=== PATIENT | male | born 1955 ===

== ENCOUNTER 2024-11-04 14:53 | Outpatient (REF) | payer MEDICARE, SELFPAY ==
[2024-11-04 15:00] LABS: MANUAL DIFF FLAG NO
[2024-11-04 15:09] LABS: Basophils Percent Auto 0.3 % (0-2); Eosinophils Absolute Auto 0.2 X10*3/uL (0.0-0.4); Eosinophils Percent Auto 2.4 % (0-4); Hematocrit 35.3 % (42.0-52.0); Hemoglobin 11.4 g/dl (14.0-18.0); Imm Gran Abs Auto 0.04 X10*3/uL (0.00-0.03); Imm Gran Pct Auto 0.6 % (0.0-0.4); Lymphocytes Absolute Auto 1.1 X10*3/uL (1.2-4.9); Lymphocytes Percent Auto 15.1 % (20-40); Mean Corpuscular HGB Conc 32.3 g/dl (31.0-36.0); Mean Corpuscular Hemoglobin 29.1 pg (27.0-33.0); Mean Corpuscular Volume 90.1 fL (80.0-98.0); Mean Platelet Volume 10.5 fL (9.4-12.4); Monocytes Absolute Auto 0.6 X10*3/uL (0.1-1.2); Monocytes Percent Auto 8.9 % (2-11); Neutrophils Absolute Auto 5.3 x10*3/uL (2.0-8.3); Neutrophils Percent Auto 72.7 % (45-73); Platelet Count 265 X10*3/uL (160-400); Red Blood Count 3.92 X10*6/uL (4.60-5.80); Red Cell Distribution Width 14.2 % (11.0-16.0); White Blood Count 7.2 X10*3/uL (4.8-10.8)
--- OUTSIDE RECORDS SUMMARY | 2024-11-04 15:49 | XMS_ITS | Encounter Summary ---
Author Organization [employer] Address [address] [place] [address] Care Team Providers Care Landscape Crew Leader Name Role Phone Unavailable Primary Care Provider Unavailabl e Encounter Details Date Type Department Care Team (Late st Contact Info) Description 10/21/2024 Lab Requisition [facility] - Main Lab [address] [facility] [place] [address] Fernie Zuniga MD [address] [place] [id number] Infection and inflammatory reaction due to other internal joint prosthesis, initial encounter ([facility]); Bacteremia Social History Tobacco Use Types Packs/Day Years Used Date Smoking Tobacco: Never Assessed Sex and Gender Information Value Date Recorded Sex Assigned at Not on file Legal Sex Male 5:45 PM EST Gender Identity Not on file Sexual Orientation Not on file documented as of this encounter Plan of Treatment Not on file documented as of this encounter Procedures Procedure Name Priority Date/Time Associated Diagnosis Comments SST - GOLD Routine 10/21/2024 3:15 PM EST Infection and inflammatory reaction due to other internal joint prosthesis, initial encounter ([facility]) Bacteremia CBC WITH AUTO DIFFERENTIAL Routine 10/21/2024 3:15 PM EST Infection and inflammatory reaction due to other internal joint prosthesis, initial encounter ([facility]) Bacteremia CREATININE, SERUM Routine 10/21/2024 3:1 5 PM EST Infection and inflammatory reaction due to other internal joint prosthesis, initial encounter ([facility]) Bacteremia CBC AND DIFFERENTIAL Routine 10/21/2024 3:15 PM EST Infection and inflammatory reaction due to other internal joint prosthesis, initial encounter ([facility]) Bacteremia C-REACTIVE PROTEIN Routine 10/21/2024 3: 15 PM EST Infection and inflammatory reaction due to other internal joint prosthesis, initial encounter ([facility]) Bacteremia ALANINE AMINOTRANSFERASE Routine 025 3:15 PM EST Infection and inflammatory reaction due to other internal joint prosthesis, initial encounter ([facility]) Bacteremia documented in this encounter Results * SST tube (10/21/2024 3:15 PM EST) Pathologist [facility] Extra Tube Hold for add-ons. 10/21/2024 8:01 PM EST [facility] Comment:Auto resulted. Blood Venous blood specimen / Unknown 10/21/2024 3:15 PM EST 10/21/2024 6:03 PM EST us Fernie Zuniga MD LAB BLOOD ORDERABLES Final R esult [facility] [address] [place] [address], * (ABNORMAL) CBC auto differential (10/21/2024 3:15 PM EST) Pathologist [facility] WBC 14.7(H) 4.8 - 10.8 K/mcL LAB HEMETOLOGY METHOD 10/21/2024 7:[address] [facility] RBC 3.50(L) 4.50 - 5.50 M/mcL LAB HEMETOLOGY METHOD 10/21/2024 7:[address] [facility] Hemoglobin 10.2(L) 13.5 - 17.5 g/dL LAB HEMETOLOGY METHOD 10/21/2024 7:[address] [facility] Hematocrit 31.8(L) 42.0 - 54.0 % LAB HEMETOLOGY METHOD 10/21/2024 7:[address] [facility] MCV 91.4 79.0 - 98.0 FL LAB HEMETOLOGY METHOD 10/21/2024 7:[address] [facility] MCH 29.3 27.0 - 32.0 pcg LAB HEMETOLOGY METHOD 10/21/2024 7:[address] [facility] MCHC 32.1 32.0 - 37.0 g/dL LAB HEMETOLOGY METHOD 10/21/2024 7:[address] [facility] RDW 14.4 11.0 - 15.0 % LAB HEMETOLOGY METHOD 10/21/2024 7:[address] [facility] Platelets 396 130 - 400 K/mcL LAB HEMETOLOGY METHOD 10/21/2024 7:[address] [facility] MPV 10.5 7.0 - 11.0 FL LAB HEMETOLOGY METHOD 10/21/2024 7:[address] [facility] NRBC 0.0 <1.0 % LAB HEMETOLOGY METHOD 10/21/2024 7:[address] [facility] NRBC Absolute 0.00 <0.10 K/mcL LAB HEMETOLOGY METHOD 10/21/2024 7:[address] [facility] Neutrophils Relative 92.1 % LAB HEMETOLOGY METHOD 10/21/2024 7:[address] [facility] Lymphocytes Relative 3.9 % LAB HEMETOLOGY METHOD 10/21/2024 7:[address] [facility] Monocytes Relative 3.0 % LAB HEMETOLOGY METHOD 10/21/2024 7:[address] [facility] Eosinophils Relative 0.1 % LAB HEMETOLOGY METHOD 10/21/2024 7:[address] [facility] Basophils Relative 0.2 % LAB HEMETOLOGY METHOD 10/21/2024 7:[address] [facility] Immature Granulocytes Relative 0.7 % LAB HEMETOLOGY METHOD 10/21/2024 7:[address] [facility] Neutrophils Absolute 13.52(H) 1.50 - 7.00 K/mcL LAB HEMETOLOGY METHOD 10/21/2024 7:42 PM EST [facility] Lymphocytes Absolute 0.57(L) 1.00 - 5.00 K/[facility] LAB HEMETOLOGY METHOD 10/21/2024 7:42 PM EST [facility] Monocytes Absolute 0.44 0.20 - 1.00 K/[facility] LAB HEMETOLOGY METHOD 10/21/2024 7:42 PM EST [facility] Eosinophils Absolute 0.02 0.00 - 0.50 K/[facility] LAB HEMETOLOGY METHOD 10/21/2024 7:42 PM EST [facility] Basophils Absolute 0.03 0.00 - 0.20 K/[facility] HEMETOLOGY METHOD 10/21/2024 7:42 PM EST [facility] Immature Granulocytes Absolute 0.11(H) 0.00 - 0.03 K/[facility] LAB HEMETOLOGY METHOD 10/21/2024 7:42 PM EST [facility] Blood Venous blood specimen / Unknown 10/21/2024 3:15 PM EST 10/21/2024 6:03 PM EST Fernie Zuniga MD LAB BLOOD ORDERABLES Final R esult [facility] [address] [place] [address], * Alanine aminotransferase (10/21/2024 3:15 PM EST) ALT (SGPT) 22 10 - 60 unit/L LAB CHEMISTRY METHOD 10/21/2024 8:28 PM EST [facility] Blood Venous blood specimen / Unknown 10/21/2024 3:15 PM EST 10/21/2024 6:03 PM EST Fernie Zuniga MD LAB BLOOD ORDERABLES Final R esult Performing Organization Address [facility]/ZIP Co de Phone Number [facility] [address] [place] [address], [place] [phone] * Creatinine (10/21/2024 3:15 PM EST) Creatinine 0.78 0.70 - 1.30 mg/dL LAB CHEMISTRY METHOD 10/21/2024 8:28 PM EST [facility] eGFR 95 >=60 mL/min/1. 73m2 LAB CHEMISTRY METHOD 10/21/2024 8:28 PM EST [facility] Comment:Calculation based on the??Chronic Kidney Disease Epidemiology Collaboration (CKD-EPI) equation refit??without adjustment for race. Blood Venous blood specimen / Unknown 10/21/2024 3:15 PM EST 10/21/2024 6:03 PM EST Fernie Zuniga MD LAB BLOOD ORDERABLES Final R esult Performing Organization Address [facility]/ZIP Co de Phone Number [facility] [address] [place] [address], [place] [phone] * (ABNORMAL) C-reactive protein (10/21/2024 3:15 PM EST) C-Reactive Protein 1.61(H) <=0.50 mg/dL LAB CHEMISTRY METHOD 10/21/2024 8:28 PM EST [facility] Blood Venous blood specimen / Unknown 10/21/2024 3:15 PM EST 10/21/2024 6:03 PM EST Fernie Zuniga MD LAB BLOOD ORDERABLES Final R esult Performing Organization Address [facility]/ZIP Co de Phone Number [facility] [address] [place] [address], [place] [phone] documented in this encounter Visit Diagnoses Diagnosis Infection and inflammatory reaction due to other internal joint prosthesis, initial encounter ([facility]) Bacteremia documented in this encounter
--- OUTSIDE RECORDS SUMMARY | 2024-11-04 15:49 | XMS_ITS | Patient Health Record ---
Author Organization [employer] Address [address] [place] [address] [id number] Support Name Relationship Address Phone TOSIN CRENSHAW Guarantor Unknown [phone] ALLERGIES No Known Allergies REASON FOR REFERRAL No Information MEDICATIONS Medication SIG (Take, Route, Frequency, Duration) Notes Start Date End Date Status amLODIPine Benzoate Active Atorvastatin Calcium 20 MG 1 tablet Oral ly Once a day Active Metoprolol Succinate 200 MG 1 capsule Or ally Once a day Active Venlafaxine HCl Acti ve Advil 200 MG 1 tablet with food o r milk as needed Orally Three times a day Active oxyCODONE HCl Active Losartan Potassium A ctive PROBLEMS Problem Type ICD Code Onset Dates Problem Status W/U Status Risk SNOMED Code Notes Problem Lumbago with sciatica, right side (M54.41) Active confirmed [id number] Problem Lumbago with sciatica, left side (M54.42) Active confirmed [id number] PLAN OF TREATMENT No Information Insurance Providers Payer Name Payer Address Payer Phone Subscriber Number Group Number Insured Name Patient Relationship to Insured Coverage Start Date Coverage End Date [facility] [address] [address] [place] [address] [id number] TOSIN CRENSHAW Self - patient is the insured MEDICAL (GENERAL) HISTORY Surgical History Surgery Date(Month/Year) Shoulder Replacement
--- OUTSIDE RECORDS SUMMARY | 2024-11-04 15:49 | XMS_ITS | Clinical Summary ---
Author Organization [address] [facility] Address [address] [place] [address] Phone Care Team Providers Care Chemical Radiation Technician Name Role Phone Unavailable Primary Care Provider Unavailabl e Encounters Date Type Department Care Team Description 10/21/2024 Lab Requisition [facility] - Main Lab [address] [facility] [place] [address] Fernie Zuniga MD Infection and inflammatory reaction due to other internal joint prosthesis, initial encounter ([facility]); Bacteremia from Last 3 Months Social History Tobacco Use Types Packs/Day Years Used Date Smoking Tobacco: Never Assessed Sex and Gender Information Value Date Recorded Sex Assigned at Not on file Legal Sex Male 5:45 PM EST Gender Identity Not on file Sexual Orientation Not on file Plan of Treatment Health Maintenance Due Date Last Done Comments DTaP,Tdap,and Td Vaccines (1 - Tdap) 01/18/1972 Zoster Vaccines (1 of 2) 2003 Pneumococcal Vaccine: 50+ Ye ars (1 of 1 - PCV) 2018 COVID-19 Vaccine (1 - 2023-2 5 season) 2024 Influenza Vaccine (#1) 2024 Abdominal Aortic Aneurysm (A AA) Screen 10/22/2024 Cholesterol Screening (Lipid Panel) 10/22/2024 Colorectal Cancer Screening: Colonoscopy 10/22/2024 Depression Screening 10/22/2024 Falls Risk Assessment 10/22/2024 Hepatitis C Screening 10/22/2024 Medicare Annual Wellness Visit 10/22/2024 Social Influencers of Health Screening 10/22/2024 RSV Immunization Patients 60 + Years Old (1 - 1-dose 75+ series) 01/18/2028 HIB Vaccines Aged Out No longer eligi ble based on patient's age to complete this topic HPV Vaccines Aged Out No longer eligi ble based on patient's age to complete this topic Hepatitis A Vaccines Aged Out No long er eligible based on patient's age to complete this topic Hepatitis B Vaccines Aged Out No long er eligible based on patient's age to complete this topic IPV Vaccines Aged Out No longer eligi ble based on patient's age to complete this topic MMR Vaccines Aged Out No longer eligi ble based on patient's age to complete this topic Meningococcal ACWY Vaccine Aged Out N o longer eligible based on patient's age to complete this topic RSV Immunization Patients Un tj 20 months Aged Out No longer eligible b ased on patient's age to complete this topic Varicella Vaccines Aged Out No longer eligible based on patient's age to complete this topic Procedures Procedure Name Priority Date/Time Associated Diagnosis Comments SST - GOLD Routine 10/21/2024 3:15 PM EST Infection and inflammatory reaction due to other internal joint prosthesis, initial encounter ([facility]) Bacteremia CBC WITH AUTO DIFFERENTIAL Routine 10/21/2024 3:15 PM EST Infection and inflammatory reaction due to other internal joint prosthesis, initial encounter ([facility]) Bacteremia ALANINE AMINOTRANSFERASE Routine 025 3:15 PM EST Infection and inflammatory reaction due to other internal joint prosthesis, initial encounter ([facility]) Bacteremia CREATININE, SERUM Routine 10/21/2024 3:1 5 PM EST Infection and inflammatory reaction due to other internal joint prosthesis, initial encounter ([facility]) Bacteremia C-REACTIVE PROTEIN Routine 10/21/2024 3: 15 PM EST Infection and inflammatory reaction due to other internal joint prosthesis, initial encounter ([facility]) Bacteremia CBC AND DIFFERENTIAL Routine 10/21/2024 3:15 PM EST Infection and inflammatory reaction due to other internal joint prosthesis, initial encounter ([facility]) Bacteremia from Last 3 Months Results * SST tube (10/21/2024 3:15 PM EST) Extra Tube Hold for add-ons. 10/21/2024 8:01 PM EST [facility] Comment:Auto resulted. Blood Venous blood specimen / Unknown 10/21/2024 3:15 PM EST 10/21/2024 6:03 PM EST us Fernie Zuniga MD LAB BLOOD ORDERABLES Final R esult [facility] [address] [place] [address], * (ABNORMAL) CBC auto differential (10/21/2024 3:15 PM EST) WBC 14.7(H) 4.8 - 10.8 K/mcL LAB HEMETOLOGY METHOD 10/21/2024 7:42 PM [facility] RBC 3.50(L) 4.50 - 5.50 M/mcL LAB HEMETOLOGY METHOD 10/21/2024 7:42 PM [facility] Hemoglobin 10.2(L) 13.5 - 17.5 g/dL LAB HEMETOLOGY METHOD 10/21/2024 7:42 PM [facility] Hematocrit 31.8(L) 42.0 - 54.0 % LAB HEMETOLOGY METHOD 10/21/2024 7:42 PM [facility] MCV 91.4 79.0 - 98.0 FL LAB HEMETOLOGY METHOD 10/21/2024 7:42 PM [facility] MCH 29.3 27.0 - 32.0 pcg LAB HEMETOLOGY METHOD 10/21/2024 7:42 PM [facility] MCHC 32.1 32.0 - 37.0 g/dL LAB HEMETOLOGY METHOD 10/21/2024 7:42 PM [facility] RDW 14.4 11.0 - 15.0 % LAB HEMETOLOGY METHOD 10/21/2024 7:42 PM [facility] Platelets 396 130 - 400 K/mcL LAB HEMETOLOGY METHOD 10/21/2024 7:42 PM [facility] MPV 10.5 7.0 - 11.0 FL LAB HEMETOLOGY METHOD 10/21/2024 7:42 PM [facility] NRBC 0.0 <1.0 % LAB HEMETOLOGY METHOD 10/21/2024 7:42 PM [facility] NRBC Absolute 0.00 <0.10 K/mcL LAB HEMETOLOGY METHOD 10/21/2024 7:42 PM [facility] Neutrophils Relative 92.1 % LAB HEMETOLOGY METHOD 10/21/2024 7:42 PM [facility] Lymphocytes Relative 3.9 % LAB HEMETOLOGY METHOD 10/21/2024 7:42 PM [facility] Monocytes Relative 3.0 % LAB HEMETOLOGY METHOD 10/21/2024 7:42 PM [facility] Eosinophils Relative 0.1 % LAB HEMETOLOGY METHOD 10/21/2024 7:42 PM [facility] Basophils Relative 0.2 % LAB HEMETOLOGY METHOD 10/21/2024 7:42 PM [facility] Immature Granulocytes Relative 0.7 % LAB HEMETOLOGY METHOD 10/21/2024 7:42 PM [facility] Neutrophils Absolute 13.52(H) 1.50 - 7.00 K/mcL LAB HEMETOLOGY METHOD 10/21/2024 7:42 PM [facility] Lymphocytes Absolute 0.57(L) 1.00 - 5.00 K/mcL LAB HEMETOLOGY METHOD 10/21/2024 7:42 PM [facility] Monocytes Absolute 0.44 0.20 - 1.00 K/mcL LAB HEMETOLOGY METHOD 10/21/2024 7:42 PM [facility] Eosinophils Absolute 0.02 0.00 - 0.50 K/mcL LAB HEMETOLOGY METHOD 10/21/2024 7:42 PM EST [facility] Basophils Absolute 0.03 0.00 - 0.20 K/mcL LAB HEMETOLOGY METHOD 10/21/2024 7:42 PM EST [facility] Immature Granulocytes Absolute 0.11(H) 0.00 - 0.03 K/mcL LAB HEMETOLOGY METHOD 10/21/2024 7:42 PM EST [facility] Blood Venous blood specimen / Unknown 10/21/2024 3:15 PM EST 10/21/2024 6:03 PM EST Fernie Zuniga MD LAB BLOOD ORDERABLES Final R esult Performing Organization Address [facility]/ZIP Co de Phone Number [facility] [address] [place] [address], [place] [phone] * Creatinine (10/21/2024 3:15 PM EST) Creatinine 0.78 0.70 - 1.30 mg/dL LAB CHEMISTRY METHOD 10/21/2024 8:28 PM EST [facility] eGFR 95 >=60 mL/min/1. 73m2 LAB CHEMISTRY METHOD 10/21/2024 8:28 PM EST [facility] Comment:Calculation based on the??Chronic Kidney Disease Epidemiology Collaboration (CKD-EPI) equation refit??without adjustment for race. Blood Venous blood specimen / Unknown 10/21/2024 3:15 PM EST 10/21/2024 6:03 PM EST us Fernie Zuniga MD LAB BLOOD ORDERABLES Final R esult [facility] [address] [place] [address], [place] [phone] * (ABNORMAL) C-reactive protein (10/21/2024 3:15 PM EST) C-Reactive Protein 1.61(H) <=0.50 mg/dL LAB CHEMISTRY METHOD 10/21/2024 8:28 PM EST [facility] Blood Venous blood specimen / Unknown 10/21/2024 3:15 PM EST 10/21/2024 6:03 PM EST Fernie Zuniga MD LAB BLOOD ORDERABLES Final R esult [facility] [address] [place] [address], [place] [phone] * Alanine aminotransferase (10/21/2024 3:15 PM EST) ALT (SGPT) 22 10 - 60 unit/L LAB CHEMISTRY METHOD 10/21/2024 8:28 PM EST [facility] Blood Venous blood specimen / Unknown 10/21/2024 3:15 PM EST 10/21/2024 6:03 PM EST Fernie Zuniga MD LAB BLOOD ORDERABLES Final R esult [facility] [address] [place] [address], [place] [phone] from Last 3 Months Insurance [employer]
[2024-11-04 15:50] LABS: Alanine Aminotransferase 22 U/L (0-40); C Reactive Protein 0.18 mg/dL (< or = 0.50); Estimated Glomerular Filt Rate > 60
--- OUTSIDE RECORDS SUMMARY | 2024-11-04 15:50 | XMS_ITS | Continuity of Care Document ---
Author Organization [place] [facility] Address [address] [place] [address] Assessment Encounter Date Assessment Date Assessment LastModified by Organization Details LastModified Time 10/31/2024 10/31/2024 X-Ray AP/Grashey right shoulder-10/31/24: Well-placed reverse prosthesis. No evidence of hardware failure. ASSESSMENT: - Post-operative status, right shoulder arthroplasty - Ongoing antibiotic treatment for infection - Severe knee pain, likely requiring knee replacement PLAN: I discussed with the patient the importance of continuing his antibiotic treatment for the next month. I advised him to stay in the sling and only move the shoulder as tolerated to avoid disrupting the healing process. We will follow up with Dr. Zuniga to ensure the infection is resolving and obtain necessary lab work. The patient will be seen again in four weeks, at which point he may be able to discontinue the sling. We will also address his knee pain and consider the need for knee replacement surgery once his shoulder infection is fully resolved. Patient presents to clinic 2 weeks s/p reverse total shoulder arthroplasty. They are doing well at this time. All prosthetic components are in good alignment / position with no evidence of hardware failure. They no longer need to wear their sling during the day but may continue to do so for comfort. They should continue to sleep in it at night. They may begin to use their shoulder for light ADLs while keeping their hands in front of their body and avoiding motions to the side. Their ELBOW can go to the side and behind their back. Did not teach them 1st POV exercises at this time given their risk for acromial stress fracture. They can shower and get the incision site wet, but should avoid soaking in the shower. Additionally, they may begin to practice driving with a friend or family member once they feel comfortable, but should be mindful of the gear shift and ensure their operative side stays inside the strikezone when reaching for it. F/u in 4 weeks for their 2nd POV. I spent a total of 15 minutes on the day of the visit with the patient. This includes time spent reviewing pertinent medical records, test results, and radiographs prior to the appointment. With the patient, a medically necessary physical examination was performed. Finally, time was spent counseling/educating the patient on next steps in the postoperative timeline, continued shoulder care, planning and documenting information in the EHR. This appointment note was dictated in real-time using AI-assisted software. Given the limitations of this software, please disregard any redundancies, grammatical errors, or oversimplification of medical terminology throughout this transcript. [email or web address] Not available 11/03/2024 09:15:42 Plan of Treatment Reminders Order Date Submit Date Provider Last Modified By Organization Details Last Modified Time Details Appointments Post-O perati ve F/U 20 025 10:20AM YOVANA DEL RIO MD Not available Not available Not available Post-O perati ve F/U 025 09:40AM SHIMA MARTINEZ Not available Not available Not available Lab None record ed. Referral None record ed. Procedures None record ed. Surgeries None record ed. Imaging None record ed. Medication Orders None record ed. Patient TargetsNo targets recorded. Patient InstructionsNo instructions recorded. Reason for Referral None Reported. Results Created Date Observation Date Name Description Value Unit Range Abnormal Flag Note LastModifiedBy Organization Detail LastModifiedTime 10/31/1910/31/2024 XR, shoul tj, 2 or more view [facility] Name : HE JEAN 7 - Date: 1954 Sex: M Locati on : [facility] Visit: [id number] Admit Date: 2024 Date of Servic e: 2024 Exam : XR SHOULD ER 2+ VW RIGHT Status : Final Order MD : Ethan DEL RIO NDREW Ord Tel#:( [phone] CC Provid er:, ------ ------ ------ ------ ------ ------ ------ ------ ------ ------ ------ ------ ------ - INDICA TION: Should er arthro plasty evalua tion. KAYCEE GS: There is a right should er arthro plasty in place. There is no eviden ce of hardwa re compli cation or malali gnment .There is hypert rophic ossifi cation along the inferi or glenoi d rim, unchan ged from 025. No osseou s lesion is identi fied and no soft tissue abnorm ality is seen. REPORT SIGNED BY: GAEL QUIÑONES 09:17: 07 [email or web address] [facility] [address], [facility], [place], [address], 10/31/2024 09:39:10 10/31/1910/31/2024 jeff WOODY [facility] Pt Name : HE JEAN Champ 7 - Date: 1954 Sex: M Locati on : [facility] Visit: [id number] Admit Date: 2024 Date of Servic e: 2024 Exam : BONG BENOITU S 1 VW RIGHT Status : Final Order MD : Ethan DEL RIO NDREW Ord Tel#:( [phone] CC Provid er:, ------ ------ ------ ------ ------ ------ ------ ------ ------ ------ ------ ------ ------ - INDICA TION: Should er arthro plasty evalua tion. KAYCEE GS: There is a right should er arthro plasty in place. There is no eviden ce of hardwa re compli cation or malali gnment .There is hypert rophic ossifi cation along the inferi or glenoi d rim, unchan ged from 025. No osseou s lesion is identi fied and no soft tissue abnorm ality is seen. REPORT SIGNED BY: GAEL QUIÑONES 09:17: 07 [email or web address] [facility] [address] [facility] [address], [place], [address], 10/31/2024 09:39:15 Result Notes None recorded. 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 Procedures Surgical History Date Name Laterality Status Provider Name and Address Organization Details Recorded Time 10/15/19 25 Orthopaedic Surgery completed Jaylen Victor [facility] 10/31/2024 08:41:40 12/14/19 18 Orthopaedic Surgery completed Annel Bradshaw [facility] 12/19/2017 10:23:51 06/07/20 17 Orthopaedic Surgery completed Addi Long [facility] 06/21/2017 10:34:29 Shoulder Surgery completed Not Available [facility] 07/24/2022 22:41:26 Orthopaedic Surgery completed Jony Dill [facility] 03/19/2024 15:02:13 Imaging Results None recorded. Procedure Notes None recorded. Medical Equipment None Reported. Allergies No known drug allergies Medications Name Sig Start Date Stop Date Status Note LastModified by Organization Details LastModified Time allergy relief syrup active Not Available Not Available Not Available advocate insulin pen needles 31gx5m m 31g x 5 mm misc active Not Available Not Available Not Available freestyle lite blood glucose monito ring system w/device kit active Not Available Not Available Not Available freestyle lite test strips strp active Not Available Not Available Not Available freestyle lancets misc active Not Available Not Available Not Available celecoxib 200 mg capsule 05/21 completed Not Available Not Available Not Available cyclobenzap rine 10 mg tablet TAKE 1 TABLET BY MOUTH EVERY 8 HOURS NEEDED FOR MUSCLE SPASM FOR 5 DAYS 12/02 completed Not Available Not Available Not Available nystatin 100,000 unit/mL oral suspension PLEASE SEE ATTACHED FOR DETAILED DIRECTION S active Not Available Not Available No t Available venlafaxine ER 75 mg capsule,ext ended release 24 hr active Not Available Not Available Not Available doxycycline hyclate 100 mg capsule 12/02 completed Not Available Not Available Not Available atorvastati n 20 mg tablet active Not Available Not Available Not Available citalopram 40 mg tablet active Not Available Not Available Not Available trazodone 50 mg tablet active Not Available Not Available Not Available azithromyci n 250 mg tablet TAKE 2 TABLETS (500 MG) THE FIRST DAY, THEN 1 TABLET (250 MG) ONCE DAILY FOR 4 DAYS. 12/02 completed Not Available Not Available Not Available Lidocaine Viscous 2 % mucosal solution active Not Available Not Available Not Available tizanidine 4 mg tablet TAKE 1 TABLET BY MOUTH TWICE DAILY FOR 10 DAYS NEEDED FOR MUSCLE SPASTICIT Y active Not Available Not Available No t Available amiodarone 200 mg tablet active Not Available Not Available Not Available naltrexone 50 mg tablet active Not Available Not Available Not Available metoprolol succinate ER 200 mg tablet,exte nded release 24 hr TAKE 1 TABLET BY MOUTH EVERY DAY active Not Available Not Available No t Available lisinopril 20 mg tablet 06/21 completed Not Available Not Available Not Available prednisone 20 mg tablet TAKE 2 TABLETS BY MOUTH EVERY DAY active Not Available Not Available No t Available metoprolol succinate ER 100 mg tablet,exte nded release 24 hr active Not Available Not Available Not Available prednisone 5 mg tablet active Not Available Not Available Not Available methylpredn isolone 4 mg tablet PLEASE SEE ATTACHED FOR DETAILED DIRECTION S 12/02 completed Not Available Not Available Not Available cromolyn 4 % eye drops 05/21 completed Not Available Not Available Not Available amlodipine 5 mg tablet active Not Available Not Available Not Available ciprofloxac in 500 mg tablet active Not Available Not Available Not Available hydrocodone 10 mg-acetamin ophen 325 mg tablet TAKE 2 TABLETS BY MOUTH EVERY 4 HOURS IF NEEDED FOR POST OP PAIN FOR 18 DAYS 09/14 completed Not Available Not Available Not Available omeprazole 40 mg capsule,del ayed release active Not Available Not Available Not Available doxycycline monohydrate 100 mg tablet TAKE ONE TABLET ORALLY TWICE A DAY FOR 3 WEEKS 12/02 completed Not Available Not Available Not Available tramadol 50 mg tablet TAKE 1 TABLET BY MOUTH EVERY 6 HOURS NEEDED 12/02 completed Not Available Not Available Not Available oxycodone 15 mg tablet active Not Available Not Available Not Available oxycodone-a cetaminophe n 5 mg-325 mg tablet TAKE 1 TABLET ORALLY DAILY NEEDED FOR MODERATE PAIN 12/02 completed Not Available Not Available Not Available famotidine 20 mg tablet TAKE 1 TABLET BY MOUTH TWICE A DAY active Not Available Not Available No t Available amlodipine 10 mg tablet active Not Available Not Available Not Available cephalexin 500 mg capsule TAKE 1 CAPSULE BY MOUTH 4 TIMES A DAY FOR 5 DAYS 12/02 completed Not Available Not Available Not Available dextroamphe tamine-amph etamine 20 mg tablet TAKE 1 TABLET (20 MG) BY MOUTH DAILY active Not Available Not Available No t Available prednisone 50 mg tablet TAKE 1 TABLET BY MOUTH EVERY DAY 12/02 completed Not Available Not Available Not Available polymyxin B sulfate 10,000 unit-trimet hoprim 1 mg/mL eye drops 05/21 completed Not Available Not Available Not Available hydrochloro thiazide 12.5 mg capsule active Not Available Not Available Not Available gabapentin 300 mg capsule TAKE 1 CAPSULE BY MOUTH EVERY DAY AT BEDTIME NEEDED active Not Available Not Available No t Available dextroamphe tamine-amph etamine ER 10 mg 24hr capsule,ext end release TAKE 1 CAPSULE BY MOUTH DAILY active Not Available Not Available No t Available codeine 10 mg-guaifene sin 100 mg/5 mL oral liquid TAKE 5 ML BY MOUTH AT BEDTIME NEEDED FOR COUGH FOR 5 DAYS. MAY REPEAT DURING THE NIGHT FOR COUGH. 05/21 completed Not Available Not Available Not Available hydrochloro thiazide 25 mg tablet 05/21 completed Not Available Not Available Not Available mupirocin 2 % topical ointment APPLY 1 APPLICATI ON NASAL TWICE A DAY START ON 12/29/23 DIRECTED. active Not Available Not Available No t Available furosemide 20 mg tablet active Not Available Not Available Not Available gabapentin 100 mg capsule TAKE 1 CAPSULE TONIGHT, THEN 2 CAPSULES TOMORROW NIGHT, THEN 3 CAPSULES AT BEDTIME THEREAFTE R active Not Available Not Available No t Available oxycodone 30 mg tablet 01/21 completed Not Available Not Available Not Available methylpredn isolone 4 mg tablets in a dose pack TAKE 6 TABLETS ON DAY 1 DIRECTED ON PACKAGE AND DECREASE BY 1 TAB EACH DAY FOR A TOTAL OF 6 DAYS 12/02 completed Not Available Not Available Not Available Vitamin B-1 100 mg tablet active Not Available Not Available Not Available losartan 100 mg tablet active Not Available Not Available Not Available doxycycline hyclate 100 mg tablet TAKE 1 TABLET BY MOUTH EVERY 12 HOURS FOR 10 DAYS 12/02 completed Not Available Not Available Not Available naproxen 500 mg tablet active Not Available Not Available Not Available amoxicillin 875 mg-potassiu m clavulanate 125 mg tablet TAKE 1 TABLET BY MOUTH TWICE A DAY FOR 5 DAYS active Not Available Not Available No t Available oxycodone 5 mg tablet Take 1 tablet every 4-6 hours by oral route as needed. 2024 active Not Available Not Available Not Avai lable insulin lispro (U-100) 100 unit/mL subcutaneou s pen active Not Available Not Available Not Available acamprosate 333 mg tablet,angelika yed release active Not Available Not Available Not Available pregabalin 75 mg capsule TAKE 1 CAPSULE BY MOUTH AT BEDTIME 12/02 completed Not Available Not Available Not Available pregabalin 150 mg capsule PLEASE SEE ATTACHED FOR DETAILED DIRECTION S 12/02 completed Not Available Not Available Not Available Vivitrol 380 mg intramuscul ar suspension, extended release active Not Available Not Available Not Available cholecalcif aggie (vitamin D3) 1,250 mcg (50,000 unit) capsule TAKE 1 CAPSULE BY MOUTH WEEKLY active Not Available Not Available No t Available Lantus Solostar U-100 Insulin 100 unit/mL (3 mL) subcutaneou s pen active Not Available Not Available Not Available oxycodone 10 mg tablet TAKE 1 TO 2 TABLETS BY MOUTH EVERY 4 TO 6 HOURS NEEDED FOR PAIN active Not Available Not Available No t Available Acidophilus Probiotic Blend 175 mg capsule active Not Available Not Available N ot Available cholecalcif aggie (vitamin D3) 50 mcg (2,000 unit) tablet active Not Available Not Available Not Available OneTouch Delica Lancets 33 gauge active Not Available Not Available Not Available Suboxone 8 mg-2 mg sublingual film active Not Available Not Available Not Available Xarelto 20 mg tablet active Not Available Not Available No t Available OneTouch Verio test strips active Not Available Not Available Not Available Advocate Pen Needle 31 gauge x 3/16 active Not Available Not Available Not Available Incruse Ellipta 62.5 mcg/actuati on powder for inhalation INHALE 1 EACH (1 INHALATIO N TOTAL) DAILY. active Not Available Not Available No t Available OxyContin 10 mg tablet,adriana h resistant,e xtended release active Not Available Not Available Not Available Entresto 24 mg-26 mg tablet TAKE 1 TABLET BY MOUTH TWICE A DAY active Not Available Not Available No t Available OneTouch Verio Flex Meter 07/20 completed Not Available Not Available Not Available Vitals None Recorded Social History Question Answer Notes LastModified by Organizat ion Details LastModified Time Tobacco Smoking Status Never Smoker Subha Chua [facility] 06/01/2016 15:15:00 Auto Related Injury? No Information not available 06/01/2016 Have You Had Cortisone? Yes R Shoulder [email or web address] Information not available 06/21/2017 What Was The Date Of Your Most Recent Tobacco Screening? 01/21/2018 Information not available 04/17/2019 Work Related Injury? No Information not available 06/01/2016 Sex: Unknown Functional Status None recorded. Mental Status None recorded. Family History Relationship Description Onset Age of this Age Resolved Age Notes LastModified by Organization Details LastModified Time Father No current problems or disability [email or web address] Not available 09/14 11:31:14 Mother No current problems or disability [email or web address] Not available 09/14 11:31:14 Notes:father- blood clot Medical History Condition Response HIV or AIDS N High Blood Pressure Y Irregular Heartbeat N MRSA N Any Other Significant Medical Issues Y Weight Gain / Loss N Hearing Loss N Angina, Heart Failure or Attack N Night Sweats N Seizures / Epilepsy N Osteoarthritis / Rheumatoid arthritis / Other N Cancer N Stroke N Ulcer / Stomach Bleeding / Indigestion N Visual Loss or Glaucoma N Blood Clots / Phlebitis N Heart Problems N Depression or Anxiety Y Emphysema / Chronic Bronchitis N Reaction to General/Local Anesthesia N Hepatitis / Jaundice N Kidney / Bladder Infections N Diabetes N Bleeding Disorder N Chemical Dependency / Alcoholism Y Psoriasis / Skin Rash N Thyroid Disorder N Heart Disease N Asthma / Shortness of Breath / Sleep Studio Assistant ea (please specify) N Pulmonary Embolism N Past Encounters Encounter ID Performer Location Encounter Start Date Encounter Closed Date Diagnosis/Indication Diagnosis SNOMED-CT Code Diagnosis ICD10 Code Diagnosis Note [id number] YOVANA DEL RIO MD [facility] [address] [facility] [address] [place] [address] 10/31/2024 08:28:49 10/31/2024 09:43:53 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 - DUAL ELIGIBLE - [facility] (MEDICARE REPLACEMENT/ ADVANTAGE - HMO) Virgil Whipple [id number] Virgil Whipple Notes Date Note Type Note Provider Name and Address Organization Details Recorded Time 10/31/2024 text/html Virgil Whipple i s a 69-year-old male who presents for a post-operative follow-up for his right shoulder arthroplasty. The patient reports significant pain when moving the shoulder, although it is tolerable when stationary. He is currently undergoing antibiotic treatment three times a day for another month. Initially, he did not consistently use the sling, which exacerbated the pain, but he has since been more diligent. The patient is concerned about the infection and is awaiting further evaluation from the infectious disease specialist, Dr. Zuniga. The patient also mentioned that his left shoulder is doing well post-surgery. In addition to his shoulder issues, the patient reports severe knee pain, which has been previously diagnosed as requiring a knee replacement. He finds it difficult to walk and is currently focusing on recovering from his shoulder surgery. The patient has a history of prednisone use, which he believes may have contributed to his current condition.PAIN: 6 SANE: 30 YOVANA DEL RIO MD [address] [place] [address], [phone], [facility] 11/03/2024 16:20:27
== END 2024-11-04 14:54 | disposition home or self-care (01) ==
LOC: HO.LNP 14:53
PROVIDERS: Visit Provider Internal Medicine
DX: R78.81 Bacteremia (principal); T84.59XA Infection and inflammatory reaction due to other internal joint prosthesis, initial encounter
CPT/HCPCS: 82565; 84460; 85025; 86140